=== PATIENT | female | born 1960 | race Caucasian/White ===

== ENCOUNTER 2024-12-30 13:42 | Emergency (ER) | payer OTHER ==
[~2024-12-30] VITALS: Ht 167.6 cm; Wt 73.9 kg
[2024-12-30] MEDS ORDERED: ZETIA10 MG PO (14:50)
[2024-12-30] MEDS ORDERED: PROMETRIUM200 MG PO (14:50)
[2024-12-30] MEDS ORDERED: VENLAFAXINE HCL75 M2 PO (14:51)
[2024-12-30] MEDS ORDERED: ESCITALOPRA5 MG/5 ML PO (14:51)
[2024-12-30] MEDS ORDERED: TRANSDERM-SCOP1 EACH TD (14:52)
[2024-12-30] MEDS ORDERED: CLINDAMYCIN PHOSPHATE 150 MG/ML (300mg) ONE (15:19)
[2024-12-30] MEDS ORDERED: CLINDAMYCIN PHOSPHATE 150 MG/ML (600mg) IM ONE (15:30)
== END 2024-12-30 15:28 | disposition home or self-care (01) ==
LOC: ER 13:45
DX: L03.116 Cellulitis of left lower limb (principal); L03.115 Cellulitis of right lower limb; Z88.2 Allergy status to sulfonamides; Z88.0 Allergy status to penicillin